=== PATIENT | male | born 2000 | race American Indian/Alaskan Native ===

== ENCOUNTER 2021-09-19 21:41 | Inpatient (IN) | payer SELFPAY ==
--- NOTE | 2021-09-19 23:06 | Emergency Department Report ---
ED General Adult HPI - General Chief complaint: Hyperglycemia Stated complaint: BLOOD SUGAR CONCERNS Time Seen by Provider: 09/19/21 22:52 Source: patient Mode of arrival: Ambulatory Limitations: No Limitations - History of Present Illness Initial comments: 21-year-old insulin-dependent diabetic male presents emerged department complaining running out of his insulin earlier today and requesting refills of his medication he reports no complaints or concerns at time reports no fever, chills, sweats. No nausea, no vomiting. Reports no chest pain palpitation. -: Gradual Radiation: non-radiation Severity scale (0 -10): 0 Improves with: none Worsens with: none Associated Symptoms: denies: chest pain, cough, diaphoresis, fever/chills, headaches, loss of appetite, malaise, rash, seizure, shortness of breath, syncope, weakness - Related Data Previous Rx's Medication Instructions Recorded Last Taken Type Insulin Glargine [Lantus VIAL] 30 unit SUB-Q QHS 30 Days #1 vial 09/20/21 Unknown Rx Lispro Insulin [HumaLOG] See Protocol SUB-Q ACHS 30 Days #1 09/20/21 Unknown Rx vial Allergies Allergy/AdvReac Type Severity Reaction Status Date / Time No Known Allergies Allergy Verified 09/20/21 03:51 ED Review of Systems ROS: Stated complaint: BLOOD SUGAR CONCERNS Other details as noted in HPI Comment: All other systems reviewed and negative ED Past Medical Hx - Past Medical History Previous Medical History?: Yes Hx Diabetes: Yes - Surgical History Past Surgical History?: No - Medications Home Medications: Home Medications Medication Instructions Recorded Confirmed Last Taken Type Insulin Glargine [Lantus VIAL] 30 unit SUB-Q QHS 30 Days #1 vial 09/20/21 Unknown Rx Lispro Insulin [HumaLOG] See Protocol SUB-Q ACHS 30 Days #1 09/20/21 Unknown Rx vial ED Physical Exam - General Limitations: No Limitations General appearance: alert, in no apparent distress - Head Head exam: Present: atraumatic, normocephalic - Eye Eye exam: Present: normal appearance, PERRL, EOMI Pupils: Present: normal accommodation - ENT ENT exam: Present: mucous membranes moist - Neck Neck exam: Present: normal inspection - Respiratory Respiratory exam: Present: normal lung sounds bilaterally. Absent: respiratory distress - Cardiovascular Cardiovascular Exam: Present: regular rate, normal rhythm. Absent: systolic murmur, diastolic murmur, rubs, gallop - GI/Abdominal GI/Abdominal exam: Present: soft, normal bowel sounds - Rectal Rectal exam: Present: deferred - Extremities Exam Extremities exam: Present: normal inspection - Back Exam Back exam: Present: normal inspection - Neurological Exam Neurological exam: Present: alert, oriented X3 - Psychiatric Psychiatric exam: Present: normal affect, normal mood - Skin Skin exam: Present: warm, dry, intact, normal color. Absent: rash ED Course Vital Signs 09/19/21 09/20/21 09/20/21 22:29 04:08 04:39 Temperature 98.3 F Pulse Rate 67 67 Respiratory 14 12 Rate Blood Pressure 112/69 105/53 [Right] O2 Sat by Pulse 100 100 100 Oximetry 09/20/21 09/20/21 05:00 05:27 Temperature 97.4 F L Pulse Rate 95 H Respiratory 27 H Rate Blood Pressure [Right] O2 Sat by Pulse 100 Oximetry ED Medical Decision Making - Lab Data Result diagrams: 09/19/21 23:26 09/20/21 14:45 Lab Results 09/19/21 09/19/21 09/19/21 Range/Units 23:26 23:26 23:26 WBC 5.7 (4.5-11.0) K/mm3 RBC 6.52 H (3.65-5.03) M/mm3 Hgb 14.9 (11.8-15.2) gm/dl Hct 45.6 (35.5-45.6) % MCV 70 L (84-94) fl MCH 23 L (28-32) pg MCHC 33 (32-34) % RDW 14.3 (13.2-15.2) % Plt Count 203 (140-440) K/mm3 Lymph % (Auto) 29.7 (13.4-35.0) % [place] % (Auto) 4.8 (0.0-7.3) % Eos % (Auto) 0.3 (0.0-4.3) % Baso % (Auto) 0.5 (0.0-1.8) % Lymph # (Auto) 1.7 (1.2-5.4) K/mm3 [place] # (Auto) 0.3 (0.0-0.8) K/mm3 Eos # (Auto) 0.0 (0.0-0.4) K/mm3 Baso # (Auto) 0.0 (0.0-0.1) K/mm3 Seg Neutrophils % 64.7 (40.0-70.0) % Seg Neutrophils # 3.7 (1.8-7.7) K/mm3 VBG pH (7.320-7.420) Sodium 132 L (137-145) mmol/L Potassium 4.4 (3.6-5.0) mmol/L Chloride 90.5 L (98-107) mmol/L Carbon Dioxide 20 L (22-30) mmol/L Anion Gap 26 mmol/L BUN 10 (9-20) mg/dL Creatinine 0.8 (0.8-1.3) mg/dL Estimated GFR > 60 ml/min BUN/Creatinine Ratio 13 % Glucose 410 H (75-100) mg/dL Calcium 9.5 (8.4-10.2) mg/dL Phosphorus (2.5-4.5) mg/dL Magnesium (1.7-2.3) mg/dL Total Bilirubin 0.40 (0.1-1.2) mg/dL AST 13 (5-40) units/L ALT 9 (7-56) units/L Alkaline Phosphatase 105 (35-129) units/L Total Protein 8.4 H (6.3-8.2) g/dL Albumin 4.6 (3.9-5) g/dL Albumin/Globulin Ratio 1.2 % Lipase 16 (13-60) units/L Urine Color (Yellow) Urine Turbidity (Clear) Urine pH (5.0-7.0) Ur Specific [place] (1.003-1.030) Urine Protein (Negative) mg/dL Urine Glucose (UA) (Negative) mg/dL Urine Ketones (Negative) mg/dL Urine Blood (Negative) Urine Nitrite (Negative) Urine Bilirubin (Negative) Urine Urobilinogen (<2.0) mg/dL Ur Leukocyte Esterase (Negative) Urine WBC (Auto) (0.0-6.0) /HPF Urine RBC (Auto) (0.0-6.0) /HPF Urine Mucus /HPF 09/20/21 09/20/21 09/20/21 Range/Units 01:02 02:38 03:33 WBC (4.5-11.0) K/mm3 RBC (3.65-5.03) M/mm3 Hgb (11.8-15.2) gm/dl Hct (35.5-45.6) % MCV (84-94) fl MCH (28-32) pg MCHC (32-34) % RDW (13.2-15.2) % Plt Count (140-440) K/mm3 Lymph % (Auto) (13.4-35.0) % [place] % (Auto) (0.0-7.3) % Eos % (Auto) (0.0-4.3) % Baso % (Auto) (0.0-1.8) % Lymph # (Auto) (1.2-5.4) K/mm3 [place] # (Auto) (0.0-0.8) K/mm3 Eos # (Auto) (0.0-0.4) K/mm3 Baso # (Auto) (0.0-0.1) K/mm3 Seg Neutrophils % (40.0-70.0) % Seg Neutrophils # (1.8-7.7) K/mm3 VBG pH 7.284 L (7.320-7.420) Sodium (137-145) mmol/L Potassium (3.6-5.0) mmol/L Chloride (98-107) mmol/L Carbon Dioxide (22-30) mmol/L Anion Gap mmol/L BUN (9-20) mg/dL Creatinine (0.8-1.3) mg/dL Estimated GFR ml/min BUN/Creatinine Ratio % Glucose (75-100) mg/dL Calcium (8.4-10.2) mg/dL Phosphorus 3.10 (2.5-4.5) mg/dL Magnesium 2.00 (1.7-2.3) mg/dL Total Bilirubin (0.1-1.2) mg/dL AST (5-40) units/L ALT (7-56) units/L Alkaline Phosphatase (35-129) units/L Total Protein (6.3-8.2) g/dL Albumin (3.9-5) g/dL Albumin/Globulin Ratio % Lipase (13-60) units/L Urine Color Straw (Yellow) Urine Turbidity Clear (Clear) Urine pH 5.0 (5.0-7.0) Ur Specific [place] 1.031 H (1.003-1.030) Urine Protein <15 mg/dl (Negative) mg/dL Urine Glucose (UA) >=500 (Negative) mg/dL Urine Ketones 80 (Negative) mg/dL Urine Blood Neg (Negative) Urine Nitrite Neg (Negative) Urine Bilirubin Neg (Negative) Urine Urobilinogen < 2.0 (<2.0) mg/dL Ur Leukocyte Esterase Neg (Negative) Urine WBC (Auto) 1.0 (0.0-6.0) /HPF Urine RBC (Auto) < 1.0 (0.0-6.0) /HPF Urine Mucus Few /HPF - Medical Decision Making 21-year-old male insulin-dependent diabetic, presenting with apparent acute hyperglycemia at the been without his insulin for the past few days.. Differential diagnosis includes new onset diabetes, steroid or other medication use, secondary ingestion, reactive hyper glycemia. Consideration considered DKA versus hyperosmolar nonketotic state, sepsis is possible etiology of patient's current presentation. Based on the lab findings elevated glucose, and anion gap as well as the decreased pH and CO2 and ketones in urine found to be in DKA. Started on insulin drip as well is fluids and insulin bolus. Plan was discussed with hospitalist who agreed with the need for admission. Critical care attestation.: If time is entered above; I have spent that time in minutes in the direct care of this critically ill patient, excluding procedure time. ED Disposition Clinical Impression: DKA (diabetic ketoacidosis) Disposition: ADMITTED INPATIENT Is pt being admited?: Yes Does the pt Need Aspirin: No Condition: Stable
[2021-09-20 00:10] LABS: Basophils % (Auto) 0.5 % (0.0-1.8); Eosinophils % (Auto) 0.3 % (0.0-4.3); Hematocrit 45.6 % (35.5-45.6); Hemoglobin 14.9 gm/dl (11.8-15.2); Lymphocytes # (Auto) 1.7 K/mm3 (1.2-5.4); Lymphocytes % (Auto) 29.7 % (13.4-35.0); Mean Corpuscular HGB Conc 33 % (32-34); Mean Corpuscular Volume 70 fl (84-94); Monocytes # (Auto) 0.3 K/mm3 (0.0-0.8); Monocytes % (Auto) 4.8 % (0.0-7.3); Platelet Count 203 K/mm3 (140-440); Red Blood Count 6.52 M/mm3 (3.65-5.03); Red Cell Distribution Width 14.3 % (13.2-15.2)
[2021-09-20 00:21] LABS: Alanine Aminotransferase 9 units/L (7-56); Albumin 4.6 g/dL (3.9-5); BUN/Creatinine Ratio 13; Blood Urea Nitrogen 10 mg/dL (9-20); Calcium 9.5 mg/dL (8.4-10.2); Hemolysis Index 6
[2021-09-20 01:16] LABS: Bilirubin,Urine NEG (Negative); Blood,Urine NEG (Negative); Color,Urine Straw (Yellow); Mucus,Urine FEW /HPF; Protein,Urine <15 mg/dL mg/dL (Negative); RBC,Urine < 1.0 /HPF (0.0-6.0); Urobilinogen,Urine < 2.0 mg/dL (<2.0)
[2021-09-20] MEDS ORDERED: SODIUM CHLORIDE 0.9% 1000 ML 1,000 ML IV ONE ×5 (01:50→16:35)
[2021-09-20] MEDS ORDERED: INSULIN REGULAR, HUMAN 100 UNITS/1 ML IV ONE (01:50)
[2021-09-20] MEDS ORDERED: ONDANSETRON 4 MG/2 ML INJ IV STA (03:13)
[2021-09-20] MEDS ORDERED: DEXTROSE 50% IN WATER (25GM) 50 ML SYRINGE IV PRN (03:28)
[2021-09-20] MEDS ORDERED: INSULIN REGULAR, HUMAN 100 UNITS in SODIUM CHLORIDE 0.9% 99 ML IV SCH (04:00)
[2021-09-20] MEDS ORDERED: ACETAMINOPHEN 325 MG TAB PO PRN (04:13)
[2021-09-20] MEDS ORDERED: MAGNESIUM HYDROXIDE (MOM) ORAL LIQD UDC PO PRN (04:13)
[2021-09-20] MEDS ORDERED: MORPHINE 2 MG/1 ML INJ IV PRN (04:13)
[2021-09-20] MEDS ORDERED: MORPHINE 4 MG/1 ML INJ IV PRN (04:13)
[2021-09-20] MEDS ORDERED: ONDANSETRON 4 MG/2 ML INJ IV PRN (04:13)
[2021-09-20] MEDS ORDERED: SODIUM CHLORIDE 0.9% 1000 ML 1,000 ML IV SCH (04:15)
--- NOTE | 2021-09-20 04:24 | History and Physical Report ---
History of Present Illness Date of examination: 09/20/21 Date of admission: 09/20/2021 Chief complaint: Patient out of insulin. History of present illness: 21-year-old -[place] male with known history of insulin-dependent diabetes mellitus presents today to the emergency room complaining of running out of his insulin and requests refills. He has been having nausea and vomiting but denies any abdominal pain. Denies any fever or chills, no chest pain or shortness of breath, no headache or dizziness and no diaphoresis. Work-up in the emergency room today, lab reveals a blood glucose of 410. Anion gap of 26. Urinalysis shows ketones Patient is being admitted in DKA. Past History Past Medical History: diabetes Past Surgical History: No surgical history Social history: no significant social history Family history: no significant family history Medications and Allergies Allergies Allergy/AdvReac Type Severity Reaction Status Date / Time No Known Allergies Allergy Verified 09/20/21 03:51 Active Meds: Active Medications Dextrose (Dextrose 50% In Water (25gm) 50 Ml Syringe) 0 ml IV Q30MIN PRN; Protocol PRN Reason: Hypoglycemia Insulin Human Regular 100 (units/ Sodium Chloride) 100 mls @ 1 mls/hr IV TITR SREE; Protocol Sodium Chloride (Nacl 0.9% 1000 Ml) 1,000 mls @ 999 mls/hr IV BOLUS ONE Stop: 09/20/21 04:28 Last Admin: 09/20/21 04:00 Dose: 999 mls/hr Review of Systems Constitutional: no fever, no chills Ears, nose, mouth and throat: no nasal congestion, no sore throat Cardiovascular: no chest pain, no palpitations Respiratory: no cough, no shortness of breath Gastrointestinal: no abdominal pain, no nausea, no vomiting, no diarrhea Genitourinary Male: no dysuria, no hematuria, no flank pain, no nocturia Musculoskeletal: no neck pain, no low back pain Integumentary: no rash, no pruritis Neurological: no headaches, no confusion Psychiatric: no anxiety, no depression Endocrine: no polyphagia, no polydipsia, no polyuria, no nocturia Exam - Constitutional Vitals: Temp Pulse Resp BP Pulse Ox 98.3 F 67 12 105/53 100 09/19/21 22:29 09/20/21 04:08 09/20/21 04:08 09/20/21 04:08 09/20/21 04:08 General appearance: Present: no acute distress, well-nourished - EENT Eyes: Present: PERRL, EOM intact. Absent: scleral icterus ENT: hearing intact, clear oral mucosa, dentition normal - Neck Neck: Present: supple, normal ROM - Respiratory Respiratory effort: normal Respiratory: bilateral: CTA - Cardiovascular Rhythm: regular Heart Sounds: Present: S1 & S2. Absent: gallop, systolic murmur, diastolic murmur, rub, click - Extremities Extremities: no ischemia, pulses intact, pulses symmetrical, No edema, normal temperature, normal color, Full ROM Peripheral Pulses: within normal limits - Abdominal General gastrointestinal: Present: soft, non-tender, non-distended, normal bowel sounds. Absent: mass - Integumentary Integumentary: Present: clear, warm, dry. Absent: rash, normal turgor - Musculoskeletal Musculoskeletal: strength equal bilaterally - Psychiatric Psychiatric: appropriate mood/affect, intact judgment & insight, memory intact, cooperative - Neurologic Neurologic: CNII-XII intact, no focal deficits, moves all extremities Results - Labs CBC & Chem 7: 09/19/21 23:26 09/20/21 04:45 Labs: Abnormal lab results 09/19/21 09/19/21 09/20/21 Range/Units 23:26 23:26 01:02 RBC 6.52 H (3.65-5.03) M/mm3 MCV 70 L (84-94) fl MCH 23 L (28-32) pg VBG pH (7.320-7.420) Sodium 132 L (137-145) mmol/L Chloride 90.5 L (98-107) mmol/L Carbon Dioxide 20 L (22-30) mmol/L Glucose 410 H (75-100) mg/dL Total Protein 8.4 H (6.3-8.2) g/dL Ur Specific [place] 1.031 H (1.003-1.030) 09/20/21 Range/Units 02:38 RBC (3.65-5.03) M/mm3 MCV (84-94) fl MCH (28-32) pg VBG pH 7.284 L (7.320-7.420) Sodium (137-145) mmol/L Chloride (98-107) mmol/L Carbon Dioxide (22-30) mmol/L Glucose (75-100) mg/dL Total Protein (6.3-8.2) g/dL Ur Specific [place] (1.003-1.030) Assessment and Plan - Patient Problems (1) DKA (diabetic ketoacidosis) Current Visit: Yes Status: Acute Plan to address problem: Patient placed on IV fluid and insulin drip. Will monitor Accu-Cheks closely. (2) DVT prophylaxis Current Visit: Yes Status: Acute Plan to address problem: Patient placed on subcutaneous heparin. (3) Full code status Current Visit: Yes Status: Acute Plan to address problem: Patient is full code.
[2021-09-20] MEDS ORDERED: D5W/0.45% NACL/KCL 20 MEQ 20 MEQ/1,000 ML BAG IV SCH (05:00)
[2021-09-20 05:08] LABS: BUN/Creatinine Ratio 14; Blood Urea Nitrogen 13 mg/dL (9-20); Calcium 8.6 mg/dL (8.4-10.2); Hemolysis Index 9
[2021-09-20] MEDS: D5W/0.45% NACL/KCL 20 MEQ 20 MEQ/1,000 ML BAG IV SCH ×2 (05:15→14:55)
[2021-09-20] MEDS: HEPARIN 5,000 UNIT/1 ML VIAL SUB-Q SCH ×2 (05:17→14:32)
[2021-09-20] MEDS ORDERED: SODIUM CHLORIDE 0.9% 1000 ML 2,000 ML IV ONE (08:01)
[2021-09-20 08:13] LABS: BUN/Creatinine Ratio 14; Blood Urea Nitrogen 11 mg/dL (9-20); Hemolysis Index 5
--- NOTE | 2021-09-20 09:20 | Event Note ---
Date: 09/20/21 This is a 21-year-old AA male with known history of insulin-dependent diabetes mellitus admitted for DKA Patient seen and examined at the bedside. Fully AAO, on RA, denied any pain nor any discomfort at this time. Per patient, he ran out of insulin yesterday and he couldn't make it to the pharmacy on time to brass pickler his prescription. Patient re addis on insulin gtt per DKA protocol. Patient's BG and anion gap is still elevated this am, additional IVF boluses administered. Continue insulin gtt and IVF resuscitation per DKA protocol. Transition to home regimen once anion gap is closed. Plan of care discussed with patient at the bedside. He verbalized understanding and agreed with current plan.
[2021-09-20] MEDS ORDERED: FAMOTIDINE 20 MG/2 ML INJ IV ONE (10:00)
[2021-09-20 11:29] LABS: Hemolysis Index 16
[2021-09-20 11:31] LABS: BUN/Creatinine Ratio TNR; Blood Urea Nitrogen TNR mg/dL (9-20); Calcium TNR mg/dL (8.4-10.2)
[2021-09-20 12:15] LABS: Blood Urea Nitrogen 8 mg/dL (9-20); Calcium 8.2 mg/dL (8.4-10.2); Hemolysis Index 92
[2021-09-20 12:16] LABS: BUN/Creatinine Ratio 11
--- NOTE | 2021-09-20 12:57 | Consultation ---
History of Present Illness Consult date: 09/20/21 Requesting physician: ZE CATES Reason for consult: other (DKA) History of present illness: 21-year-old -Swiss male with known history of insulin-dependent diabetes mellitus presents today to the emergency room complaining of running out of his insulin and requests refills. He has been having nausea and vomiting but denies any abdominal pain. Denies any fever or chills, no chest pain or shortness of breath, no headache or dizziness and no diaphoresis. Work-up in the emergency room today, lab reveals a blood glucose of 410. Anion gap of 26. Urinalysis shows ketones Patient is being admitted in DKA. A critical care consult was placed to help facilitate monitoring in the ICU of critical drips. patient seen and examined. Vitals, labs, medications, chart reviewed. He states he ran out of insulin, and was unable to get to the pharmacy before it closed. Past History Past Medical History: diabetes Past Surgical History: No surgical history Social history: no significant social history Family history: no significant family history Medications and Allergies Allergies Allergy/AdvReac Type Severity Reaction Status Date / Time No Known Allergies Allergy Verified 09/20/21 03:51 Active Meds: Active Medications Acetaminophen (Acetaminophen 325 Mg Tab) 650 mg PO Q6H PRN PRN Reason: Pain MILD(1-3)/Fever >100.5/FOSTER Dextrose (Dextrose 50% In Water (25gm) 50 Ml Syringe) 0 ml IV Q30MIN PRN; Protocol PRN Reason: Hypoglycemia Famotidine (Famotidine 20 Mg Tab) 20 mg PO QDAY SREE Heparin Sodium (Porcine) (Heparin 5,000 Unit/1 Ml Vial) 5,000 unit SUB-Q Q8HR SREE Last Admin: 09/20/21 05:17 Dose: 5,000 unit Insulin Human Regular 100 (units/ Sodium Chloride) 100 mls @ 1 mls/hr IV TITR SREE; Protocol Last Titration: 09/20/21 12:09 Dose: 1.5 units/hr, 1.5 mls/hr Sodium Chloride (Nacl 0.9% 1000 Ml) 1,000 mls @ 150 mls/hr IV DIRECT SREE Potassium Chloride/Dextrose/Sod Cl (D5w/0.45% Nacl/Kcl 20 Meq) 20 meq in 1,000 mls @ 125 mls/hr IV DIRECT SREE Last Admin: 09/20/21 05:15 Dose: 125 mls/hr Sodium Chloride (Nacl 0.9% 1000 Ml) 1,000 mls @ 999 mls/hr IV BOLUS ONE Stop: 09/20/21 13:00 Last Admin: 09/20/21 12:05 Dose: 999 mls/hr Sodium Chloride (Nacl 0.9% 1000 Ml) 1,000 mls @ 999 mls/hr IV BOLUS ONE Stop: 09/20/21 13:26 Last Admin: 09/20/21 12:33 Dose: 999 mls/hr Magnesium Sulfate (Magnesium Sulfate 2gm/50ml) 2 gm in 50 mls @ 25 mls/hr IV ONCE ONE Stop: 09/20/21 14:59 Last Admin: 09/20/21 12:38 Dose: 25 mls/hr Magnesium Hydroxide (Magnesium Hydroxide (Mom) Oral Liqd Udc) 30 ml PO Q4H PRN PRN Reason: Constipation Morphine Sulfate (Morphine 2 Mg/1 Ml Inj) 2 mg IV Q4H PRN PRN Reason: Pain, Moderate (4-6) Morphine Sulfate (Morphine 4 Mg/1 Ml Inj) 4 mg IV Q4H PRN PRN Reason: Pain , Severe (7-10) Ondansetron HCl (Ondansetron 4 Mg/2 Ml Inj) 4 mg IV Q8H PRN PRN Reason: Nausea And Vomiting Sodium Chloride (Sodium Chloride 0.9% 10 Ml Flush Syringe) 10 ml IV BID [facility] Last Admin: 09/20/21 09:41 Dose: 10 ml Sodium Chloride (Sodium Chloride 0.9% 10 Ml Flush Syringe) 10 ml IV PRN PRN PRN Reason: LINE FLUSH Review of Systems All systems: negative (as in HPI) Physical Examination Vital signs: Vital Signs Temp Pulse Resp BP Pulse Ox 98.3 F 67 14 112/69 100 09/19/21 22:29 09/19/21 22:29 09/19/21 22:29 09/19/21 22:29 09/19/21 22:29 General appearance: no acute distress, alert Eyes: non-icteric ENT: oropharynx dry Neck: supple, no lymphadenopathy, no JVD Effort: normal Ascultation: Bilateral: clear Cardiovascular: regular rate and rhythm, other (S1,S2) Gastrointestinal: normoactive bowel sounds, soft, non-tender Integumentary: normal Extremities: no cyanosis, no edema normal mental status, non-focal exam mood appropriate, affect normal Results - Laboratory Findings CBC and BMP: 09/19/21 23:26 09/20/21 11:45 Abnormal lab findings: Abnormal Labs 09/19/21 09/19/21 09/20/21 23:26 23:26 01:02 RBC 6.52 H MCV 70 L MCH 23 L VBG pH Sodium 132 L Chloride 90.5 L Carbon Dioxide 20 L BUN Creatinine Glucose 410 H POC Glucose Calcium Magnesium Total Protein 8.4 H Ur Specific [place] 1.031 H 09/20/21 09/20/21 09/20/21 02:38 04:39 04:45 RBC MCV MCH VBG pH 7.284 L Sodium Chloride Carbon Dioxide 17 L BUN Creatinine Glucose 265 H POC Glucose 276 H Calcium Magnesium Total Protein Ur Specific [place] 09/20/21 09/20/21 09/20/21 05:02 05:55 06:56 RBC MCV MCH VBG pH Sodium Chloride Carbon Dioxide BUN Creatinine Glucose POC Glucose 233 H 242 H 223 H Calcium Magnesium Total Protein Ur Specific [place] 09/20/21 09/20/21 09/20/21 07:30 08:11 09:07 RBC MCV MCH VBG pH Sodium Chloride Carbon Dioxide 17 L BUN Creatinine Glucose 226 H POC Glucose 189 H 171 H Calcium Magnesium Total Protein Ur Specific [place] 09/20/21 09/20/21 09/20/21 10:02 10:29 11:45 RBC MCV MCH VBG pH Sodium Chloride 60.0 L Carbon Dioxide 19 L BUN 8 L Creatinine 0.7 L Glucose 123 H POC Glucose 162 H Calcium 8.2 L Magnesium 1.60 L Total Protein Ur Specific [place] Assessment and Plan Diabetic ketoacidosis in IDDM -Admit ICU -Serial BMPs, insulin infusion -DKA management per protocol, electrolyte replacement per protocol -Diabetic education and counselling on need for medical compliance -Once AG is closed and blood glucose is less than 200, can transition to basal bolus/weight based insulin therapy -Symptom management -SCDs while in bed, early ambulation for VTE prophylaxis Discussed care plan with primary service and updated RN and the patient.
[2021-09-20] MEDS ORDERED: MAGNESIUM SULFATE 2 GM/50 ML BAG IV ONE (13:00)
[2021-09-20] MEDS ORDERED: INSULIN GLARGINE 100 UNITS/ML SUB-Q ONE (15:00)
--- NOTE | 2021-09-20 15:52 | Discharge Summary ---
<FABY CORTES - Last Filed: 09/20/21 17:32> Providers - Providers Date of Admission: 09/20/21 04:13 Date of discharge: 09/20/21 Attending physician: ZE CATES MD 09/20/21 04:13 Consult to Dietitian/Nutrition [CONS] Routine Physician Instructions: Reason For Exam: Reason for Consult: Diet education Consult to Physician [CONS] Routine Comment: Consulting Provider: VIJAYA MENSAH Physician Instructions: Reason For Exam: DKA Primary care physician: TOM ENGLE Hospitalization Reason for admission: DKA Condition: Stable Hospital course: 21-year-old -[place] male with known history of insulin-dependent diabetes mellitus presents today to the emergency room complaining of running out of his insulin and requests refills. He has been having nausea and vomiting but denies any abdominal pain. Denies any fever or chills, no chest pain or shortness of breath, no headache or dizziness and no diaphoresis. Work-up in the emergency room today, lab reveals a blood glucose of 410. Anion gap of 26. Urinalysis shows ketones Patient is being admitted in DKA. --- Patient Anion gap is closed and BG remains less than 200. Patient was transitioned to SubQ insulin. He is stable and tolerating PO intake. Patient is stable for discharge. Discussed discharge planning with patient, per patient [facility] pharmacy [facility] and it is current closed for . They open back on Wednesday. New pharmacy received from patient, prescription for humalog and Mariano tus was e-prescribed to provided [facility] pharmacy. (1) DKA (diabetic ketoacidosis) Current Visit: Yes Status: Acute Plan to address problem: Patient placed on IV fluid and insulin drip. Will monitor Accu-Cheks closely. (2) DVT prophylaxis Current Visit: Yes Status: Acute Plan to address problem: Patient placed on subcutaneous heparin. (3) Full code status Current Visit: Yes Status: Acute Plan to address problem: Patient is full code. Disposition: 01 HOME / SELF CARE / HOMELESS Final Discharge Diagnosis (Prints w/discharge instructions): Insulin Dependent Diabetes Mellitus Time spent for discharge: 35 Core Measure Documentation - Palliative Care Palliative Care/ Comfort Measures: Not Applicable - Core Measures Any of the following diagnoses?: none Exam - Constitutional Vitals: Temp Pulse Resp BP Pulse Ox 98.2 F 96 H 24 102/48 100 09/20/21 12:00 09/20/21 15:00 09/20/21 15:00 09/20/21 15:00 09/20/21 15:00 General appearance: Present: no acute distress - EENT Eyes: Present: PERRL, EOM intact ENT: hearing intact, clear oral mucosa - Neck Neck: Present: normal ROM - Respiratory Respiratory effort: normal Respiratory: bilateral: CTA - Cardiovascular Rhythm: regular Heart Sounds: Present: S1 & S2 - Extremities Extremities: no ischemia, pulses intact, pulses symmetrical Peripheral Pulses: within normal limits - Abdominal General gastrointestinal: Present: soft, non-distended, normal bowel sounds Male genitourinary: Present: deferred - Rectal Rectal Exam: deferred - Integumentary Integumentary: Present: clear, warm, dry - Musculoskeletal Musculoskeletal: strength equal bilaterally - Psychiatric Psychiatric: appropriate mood/affect, cooperative - Neurologic Neurologic: CNII-XII intact, moves all extremities - Allied Health Allied health notes reviewed: nursing Plan Activity: no restrictions Diet: diabetic Wound: open to air Care Plan Goals: Please take insulin as prescribed Follow up with your primary care provider within 7 to 10 days Follow a well balance diet, drink plenty of water Follow up with: TOM ENGLE MD [Primary Care Provider] - 7 Days Prescriptions: Insulin Glargine [Lantus VIAL] 30 unit SUB-Q QHS 30 Days #1 vial Lispro Insulin [HumaLOG] See Protocol SUB-Q ACHS 30 Days #1 vial <ZE CATES - Last Filed: 09/21/21 07:15> Providers - Providers Date of Admission: 09/20/21 04:13 Attending physician: ZE CATES MD 09/20/21 04:13 Consult to Dietitian/Nutrition [CONS] Routine Physician Instructions: Reason For Exam: Reason for Consult: Diet education Consult to Physician [CONS] Routine Comment: Consulting Provider: VIJAYA MENSAH Physician Instructions: Reason For Exam: DKA Primary care physician: TOM ENGLE Hospitalization Hospital course: I saw and evaluated the patient. I agree with the findings and the plan of care as documented in the Nurse Practitioner's~note, with the following corrections and additions. Exam - Constitutional Vitals: Temp Pulse Resp BP Pulse Ox 98 F 87 16 110/59 100 09/20/21 16:00 09/20/21 17:00 09/20/21 17:00 09/20/21 17:00 09/20/21 17:00
[2021-09-20 16:21] LABS: Blood Urea Nitrogen 7 mg/dL (9-20); Calcium 7.5 mg/dL (8.4-10.2); Hemolysis Index 15
[2021-09-20 16:22] LABS: BUN/Creatinine Ratio 10
[2021-09-20] MEDS ORDERED: INSULIN LISPRO 100 UNIT/ML SUB-Q SCH (16:30)
[2021-09-20 17:05] VITALS: BP 110/59
[2021-09-21] MEDS ORDERED: FAMOTIDINE 20 MG TAB PO SCH (10:00)
== END 2021-09-20 17:37 | disposition home or self-care (01) | DRG 639 ==
LOC: ED 21:41 → CC1 09-20 04:13
PROVIDERS: ADMIT Internal Medicine Geriatric Medicine; ATTEND Internal Medicine
DX: E11.10 Type 2 diabetes mellitus with ketoacidosis without coma (principal); Z79.899 Other long term (current) drug therapy
CPT/HCPCS: 36415; 80048; 80053; 81001; 82805; 82962; 83690; 83735; 84100; 85025; G0378; J3480; J3490; Q0162; Q9967; J1644; J1815; J2405; J3475; J7030